=== PATIENT | female | born 1990 ===

== ENCOUNTER 2019-11-10 12:03 | Day surgery (SDC) | payer OTHER ==
[~2019-11-10 12:03] MED LIST: SYNTHROID50 MCG PO
== END 2019-11-10 19:26 | disposition home or self-care (01) ==
LOC: CIR.AMB 12:03
DX: O02.1 Missed abortion (principal)

== ENCOUNTER 2021-09-07 18:50 | Emergency (ER) | payer OTHER ==
[~2021-09-07] VITALS: Ht 152.4 cm; Wt 68.0 kg
[2021-09-07] MEDS ORDERED: MACROBID 100 M100 MG PO (21:46)
== END 2021-09-07 21:55 | disposition home or self-care (01) ==
LOC: ER 18:50
DX: O20.0 Threatened abortion (principal)

== ENCOUNTER 2021-12-16 12:22 | Emergency (ER) | payer OTHER ==
[~2021-12-16] VITALS: Ht 152.4 cm; Wt 72.1 kg
[~2021-12-16 12:22] MED LIST changes: +MACROBID 100 M100 MG PO
[2021-12-16] MEDS ORDERED: FOLIC ACID20 MG (12:44)
[2021-12-16] MEDS ORDERED: PRENATAL CAPLE1 EAC1 (12:44)
== END 2021-12-16 14:34 | disposition home or self-care (01) ==
LOC: ER 12:22
DX: O26.892 Other specified pregnancy related conditions, second trimester (principal); Z3A.20 20 weeks gestation of pregnancy; M94.0 Chondrocostal junction syndrome [Tietze]; Z88.6 Allergy status to analgesic agent

== ENCOUNTER 2022-04-24 13:15 | Inpatient (IN) | payer OTHER ==
[~2022-04-24] VITALS: Ht 152.4 cm; Wt 83.0 kg
[~2022-04-24 13:15] MED LIST changes: +FOLIC ACID20 MG; +PRENATAL CAPLE1 EAC1
== END 2022-05-13 13:48 | disposition home or self-care (01) | DRG 788 ==
LOC: OB/GYN 05-06 13:15 → SURH 05-06 13:15 → OB/GYN 05-10 01:59 → LDR 05-10 01:59 → OB/GYN 05-10 08:16
PROVIDERS: ADMIT Obstetrics & Gynecology; ATTEND Obstetrics & Gynecology
PROC: 4A1HXCZ Monitoring of Products of Conception, Cardiac Rate, External Approach (ICD-10-PCS; 2022-05-10)
PROC: 10D00Z1 Extraction of Products of Conception, Low, Open Approach (ICD-10-PCS; principal; 2022-05-10 07:45)
DX: O36.8130 Decreased fetal movements, third trimester, not applicable or unspecified (principal); O42.02 Full-term premature rupture of membranes, onset of labor within 24 hours of rupture; Z3A.40 40 weeks gestation of pregnancy; Z37.0 Single live birth; Z20.822 Contact with and (suspected) exposure to COVID-19

== ENCOUNTER 2022-05-01 15:28 | Outpatient (CLI) | payer OTHER | END 2022-05-01 16:42 | disposition home or self-care (01) | LOC: NST 15:28 | PROVIDERS: ATTEND Obstetrics & Gynecology Maternal & Fetal Medicine | DX: Z34.83 Encounter for supervision of other normal pregnancy, third trimester (principal) ==

== ENCOUNTER 2022-05-08 08:27 | Outpatient (CLI) | payer OTHER | END 2022-05-08 09:15 | disposition home or self-care (01) | LOC: NST 08:27 | PROVIDERS: ATTEND Obstetrics & Gynecology Maternal & Fetal Medicine | DX: Z34.83 Encounter for supervision of other normal pregnancy, third trimester (principal) ==

== ENCOUNTER 2022-05-09 10:20 | Outpatient (CLI) | payer OTHER | END 2022-05-09 11:03 | disposition home or self-care (01) | LOC: NST 10:20 | PROVIDERS: ATTEND Obstetrics & Gynecology Maternal & Fetal Medicine | DX: Z34.83 Encounter for supervision of other normal pregnancy, third trimester (principal) ==